=== PATIENT | male | born 1965 | race Caucasian/White ===

== ENCOUNTER 2022-09-28 12:39 | Inpatient (IN) ==
[2022-09-28] MEDS ORDERED: SODIUM CHLORIDE 0.9% 500 ML IV ONE (13:13)
--- NOTE | 2022-09-28 13:20 | Emergency Department Note ---
Impression & Plan Recurrent syncope, CAD (coronary artery disease), Orthostatic hypotension, Cardiomyopathy ED Provider Note NAME: FIDELIA STAPLES AGE: 57 SEX: M ARRIVES VIA: Walk-In INFORMANT: Patient ED PROVIDER(S): Sylvester Galvez MD CHIEF COMPLAINT: Near syncope, hypotension, referred. PLAN: Disposition: Admit MEDICAL DECISION MAKING: The patient is a pleasant 57-year-old gentleman with a past medical history of CAD status post CABG in 2020 in [place] who presents to the emergency department accompanied by his referred from [place] health [place] where he was there for a routine evaluation and had orthostatic vital signs performed which she reports is typical procedure and he became orthostatic with blood pressure down to the 70s systolic. The patient reports that he has been having orthostatic symptoms when standing ever since his bypass. He reports almost every day he will have near syncope or falls related to this. He denies hitting his head or losing consciousness per se. He notes he has been having mild cough and congestion over the past several days and has had generalized body aches. He reports he has not needed to take Lasix for some time. The patient reports he removed from [place] in June and his [facility] performed an [facility] echo to assess his heart function which demonstrated an EF of 30-35%. He reports this seems consistent with what it was when he left [place] and before his bypass he remembers his EF was 20-25%. He understands that a stress test was performed subsequently due to this and demonstrated an abnormality for which she has a scheduled catheterization next Tuesday. Patient reports that ever since his bypass he additionally frequently has chest pressure and shortness of breath with minimal exertion that occurs daily. He does not take any medications for this specifically. Patient denies any chest pain at this time. Review of the patient's nuclear medicine Lexiscan myocardial perfusion scan from 08/31/2022 demonstrates: SUMMARY: 1. Lexiscan myocardial perfusion suggests a moderate sized area of mild to moderate anteroapical ischemia. 2. Mildly dilated left ventricle with mild global hypokinesis most marked in the anteroapex. Calculated ejection fraction 40%. 3. Baseline ECG abnormal, no additional Lexiscan induced ECG changes. 4. No anginal symptoms. 5. Sporadic PVCs without couplets or runs. On arrival the patient is in no acute distress, afebrile with normal vital signs. He appears clinically dry. He has no focal neurologic deficits. EKG without overt acute ischemia. Chest x-ray negative for acute cardiopulmonary process. WBC, H/H and platelets within normal limits. Chemistry without metabolic acidosis. Electrolytes and LFTs without significant abnormality. High- sensitivity troponin 7.9, within normal limits. BMP within normal limits. Lipase not elevated. TSH within normal limits. UA without evidence of infection with epithelial cells present. 1+ ketones are noted consistent with the patient's clinically dry appearance. COVID-19, influenza and RSV PCR were negative. Given the patient's report of recurrent syncope and ongoing chest pain and shortness of breath with minimal exertion in the setting of his recent abnormal nuclear stress test he does agree with plan for admission for further management and possible earlier heart cath. Case was discussed with Dr. Mock, [facility] hospitalist, who will evaluate the patient for admission. Further management per admitting team. Triage Nursing notes reviewed and agree them. Prior/outside medical records reviewed Vital Signs: reviewed Differential diagnosis: Vasovagal event, dehydration, infection, hypoglycemia, electrolyte abnormalities, cardiac sources, intracerebral event, pulmonary embolism, seizure, toxicologic, neurologic, as well as other pathologies. ER treatment provided: See below. Diagnostics interpreted by me: ECG: Sinus bradycardia with PACs, 59 bpm, no overt ST elevation or depression, QTc 431, QRS 102 Cardiac Monitoring: An order for continuous cardiac monitoring was placed and demonstrated Sinus bradycardia with PACs, 59 bpm, Laboratory studies: See below Imaging studies: See below Consultation(s): Case was discussed with Dr. Mock [facility] hospitalist, who will evaluate the patient for admission. HPI: The patient is a pleasant 57-year-old gentleman with a past medical history of CAD status post CABG in 2020 in [place] who presents to the emergency department accompanied by his referred from [place] health provider where he was there for a routine evaluation and had orthostatic vital signs performed which she reports is typical procedure and he became orthostatic with blood pressure down to the 70s systolic. The patient reports that he has been having orthostatic symptoms when standing ever since his bypass. He reports almost every day he will have near syncope or falls related to this. He denies hitting his head or losing consciousness per se. He notes he has been having mild cough and congestion over the past several days and has had generalized body aches. He reports he has not needed to take Lasix for some time. The patient reports he removed from [place] in June and his [facility] performed an outpatient echo to assess his heart function which demonstrated an EF of 30-35%. He reports this seems consistent with what it was when he left [place] and before his bypass he remembers his EF was 20-25%. He understands that a stress test was performed subsequently due to this and demonstrated an abnormality for which she has a scheduled catheterization next Tuesday. Patient reports that ever since his bypass he additionally frequently has chest pressure and shortness of breath with minimal exertion that occurs daily. He does not take any medications for this specifically. Patient denies any chest pain at this time. ROS: See above HPI for pertinent positives & negatives. A total of 10 systems reviewed and were otherwise negative. VITALS:See Below PHYSICAL EXAMINATION: GENERAL: Awake, alert, well-appearing, in no distress HENT: Normocephalic, atraumatic. Oropharynx with dry mucous membranes and otherwise unremarkable. EYES: Normal conjunctiva. Sclera non-icteric. NECK: Supple. No nuchal rigidity. FROM. No JVD. RESPIRATORY: Clear to auscultation. CARDIAC: Regular rate, normal rhythm. Extremities warm and well perfused. Pulses equal. ABDOMEN: Soft, non-distended. No tenderness to palpation. No rebound or guarding. No masses. RECTAL: Deferred. MUSCULOSKELETAL: Chest examination reveals no tenderness. The back is symmetrical on inspection without obvious abnormality. There is no CVA tenderness to palpation. No joint edema. LOWER EXTREMITIES: Calves are equal size bilaterally and non-tender. No edema. No discoloration. NEURO: Normal sensorium. No sensory or motor deficits noted. SKIN: No rash or jaundice noted. Sylvester Galvez MD Past Med/Surg History Medical History CLAYTON (dyspnea on exertion) Essential (primary) hypertension GERD (gastroesophageal reflux disease) Hyperlipidemia NAEEM (obstructive sleep apnea) Surgical History History of inguinal herniorrhaphy (1984) S/P CABG (coronary artery bypass graft) (2020) Family History Grandfather Coronary heart disease Social History Smoking Status: Former smoker Feels Safe at Home: Yes Allergies Allergies Allergy/AdvReac Type Severity Reaction Status Date / Time lisinopril Allergy Verified 09/16/22 10:00 Penicillins Allergy Verified 09/16/22 10:00 Home Meds Home Medications Medication Instructions Recorded Confirmed aspirin 81 mg tablet,delayed 81 mg PO DAILY 09/16/22 09/28/22 release atorvastatin 80 mg tablet 80 mg PO DAILY 09/16/22 09/28/22 baclofen 10 mg tablet 10 mg PO TID PRN spasms 09/16/22 09/28/22 duloxetine 30 mg capsule,delayed 30 mg PO DAILY 09/16/22 09/28/22 release empagliflozin 25 mg tablet 25 mg PO DAILY 09/16/22 09/28/22 famotidine 20 mg tablet 20 mg PO DAILY 09/16/22 09/28/22 fluoxetine 20 mg capsule 40 mg PO DAILY 09/16/22 09/28/22 furosemide 20 mg tablet 20 mg PO DAILY PRN weight gain 09/16/22 09/28/22 meclizine 25 mg chewable tablet 12.5 mg PO Q8H PRN dizziness 09/16/22 09/28/22 (Dramamine (meclizine)) multivitamin 1 tab PO DAILY 09/16/22 09/28/22 trazodone 100 mg tablet 150 mg PO HS 09/16/22 09/28/22 triamcinolone acetonide 55 mcg 2 spray intranasal DAILY 09/16/22 09/28/22 nasal spray aerosol vitamin B complex and vitamin C 1 cap PO DAILY 09/16/22 09/28/22 no.20-folic acid 1 mg capsule carvedilol 25 mg tablet 25 mg PO BID 09/28/22 09/28/22 losartan 25 mg tablet 12.5 mg PO DAILY 09/28/22 09/28/22 spironolactone 25 mg PO DAILY 09/28/22 09/28/22 Results & Data (ED) Vital Signs Vital Signs - 24 hr 09/28/22 12:45 09/28/22 13:11 09/28/22 13:11 Temperature 36.4 C L Temperature Source Temporal Artery Scan Pulse Rate 73 62 Pulse Rate [Left Finger] 68 Respiratory Rate 18 16 16 Respiratory Effort / Characteristics Non-Labored Respiratory Depth Normal Respiratory Pattern Regular Blood Pressure 111/74 Blood Pressure [Right Arm] 122/79 Blood Pressure Mean 86 Blood Pressure Mean [Right Arm] 93 Blood Pressure Position Sitting Pulse Oximetry 97 98 99 Oxygen Delivery Method Room Air Room Air Room Air Sepsis Recent Fever Within 48 Hours No Sepsis New/Unexplained Change in Mental Status No Sepsis Action Taken by Nursing No Action Required 09/28/22 15:26 Temperature Temperature Source Pulse Rate Pulse Rate [Left Finger] 55 L Respiratory Rate 18 Respiratory Effort / Characteristics Non-Labored Spontaneous Respiratory Depth Normal Respiratory Pattern Blood Pressure Blood Pressure [Right Arm] 109/74 Blood Pressure Mean Blood Pressure Mean [Right Arm] 85 Blood Pressure Position Pulse Oximetry 99 Oxygen Delivery Method Room Air Sepsis Recent Fever Within 48 Hours Sepsis New/Unexplained Change in Mental Status Sepsis Action Taken by Nursing Laboratory Data 09/28/22 13:20 09/28/22 13:20 Lab Results 09/28/22 09/28/22 09/28/22 Range/Units 13:20 13:20 13:20 WBC 6.64 (4.8-10.8) K/ul RBC 4.79 (4.70-6.10) M/uL Hgb 15.7 (14.0-18.0) g/dl Hct 45.1 (42.0-52.0) % MCV 94.2 (80.0-100.0) fL MCH 32.8 (25.0-34.0) pg MCHC 34.8 (32.0-36.0) g/dL RDW Std Deviation 43.7 (36.4-46.3) fL RDW Coeff of Alvaro 12.5 (11.5-14.5) % Plt Count 199 (130-400) K/uL MPV 10.2 (9.4-12.4) fL Immature Gran % (Auto) 0.6 % Neut % (Auto) 65.6 % Lymph % (Auto) 20.3 % Billings % (Auto) 11.7 % Eos % (Auto) 1.5 % Baso % (Auto) 0.3 % Neut # (Auto) 4.35 (1.40-6.50) K/uL Lymph # (Auto) 1.35 (1.2-3.4) K/uL Bill[place] # (Auto) 0.78 H (0.11-0.59) K/uL Eos # (Auto) 0.10 (0-0.50) K/uL Baso # (Auto) 0.02 (0-0.2) K/uL Immature Gran # (Auto) 0.04 (0.01-0.20) K/uL Sodium 138 (136-145) mmol/L Potassium 4.3 (3.5-5.1) mmol/L Chloride 103 (98-107) mmol/L Carbon Dioxide 31 (21-32) mmol/L Anion Gap 4 (3-11) BUN 18 (6-23) mg/dl Creatinine 0.93 (0.6-1.4) mg/dl Est Cr Clr Drug Dosing 93.4 ml/min Est GFR ( Amer) 103.8 ml/min Est GFR (Non-Af Amer) 89.5 ml/min BUN/Creatinine Ratio 19.4 (10-20) Glucose 93 (70-99(Fasting)) mg/dl Calcium 9.4 (8.5-10.1) mg/dl Phosphorus 3.0 (2.5-4.9) mg/dl Magnesium 2.3 (1.7-2.4) mg/dl Total Bilirubin 0.6 (0.2-1.0) mg/dl AST 10 L (13-39) U/L ALT 6 L (7-52) U/L Alkaline Phosphatase 84 (34-104) U/L Troponin I High Sens 7.9 (0-20) pg/ml B-Natriuretic Peptide (0-100) pg/ml Total Protein 7.4 (6.0-8.3) gm/dl Albumin 4.1 (3.4-5.0) gm/dl Globulin 3.3 (2.5-4.0) gm/dl Albumin/Globulin Ratio 1.2 (0.9-2) Lipase 26 (11-82) U/L TSH 2.179 (0.300-4.500) uIu/ml SARS-CoV-2 (PCR) (Negative) Influenza Type A (PCR) (Neg) Influenza Type B (PCR) (Neg) RSV (RT-PCR) (Neg) 09/28/22 09/28/22 Range/Units 13:20 14:45 WBC (4.8-10.8) K/ul RBC (4.70-6.10) M/uL Hgb (14.0-18.0) g/dl Hct (42.0-52.0) % MCV (80.0-100.0) fL MCH (25.0-34.0) pg MCHC (32.0-36.0) g/dL RDW Std Deviation (36.4-46.3) fL RDW Coeff of Alvaro (11.5-14.5) % Plt Count (130-400) K/uL MPV (9.4-12.4) fL Immature Gran % (Auto) % Neut % (Auto) % Lymph % (Auto) % Bill[place] % (Auto) % Eos % (Auto) % Baso % (Auto) % Neut # (Auto) (1.40-6.50) K/uL Lymph # (Auto) (1.2-3.4) K/uL Billings # (Auto) (0.11-0.59) K/uL Eos # (Auto) (0-0.50) K/uL Baso # (Auto) (0-0.2) K/uL Immature Gran # (Auto) (0.01-0.20) K/uL Sodium (136-145) mmol/L Potassium (3.5-5.1) mmol/L Chloride (98-107) mmol/L Carbon Dioxide (21-32) mmol/L Anion Gap (3-11) BUN (6-23) mg/dl Creatinine (0.6-1.4) mg/dl Est Cr Clr Drug Dosing ml/min Est GFR ( Amer) ml/min Est GFR (Non-Af Amer) ml/min BUN/Creatinine Ratio (10-20) Glucose (70-99(Fasting)) mg/dl Calcium (8.5-10.1) mg/dl Phosphorus (2.5-4.9) mg/dl Magnesium (1.7-2.4) mg/dl Total Bilirubin (0.2-1.0) mg/dl AST (13-39) U/L ALT (7-52) U/L Alkaline Phosphatase (34-104) U/L Troponin I High Sens (0-20) pg/ml B-Natriuretic Peptide 66 (0-100) pg/ml Total Protein (6.0-8.3) gm/dl Albumin (3.4-5.0) gm/dl Globulin (2.5-4.0) gm/dl Albumin/Globulin Ratio (0.9-2) Lipase (11-82) U/L TSH (0.300-4.500) uIu/ml SARS-CoV-2 (PCR) NEGATIVE (Negative) Influenza Type A (PCR) Negative (Neg) Influenza Type B (PCR) Negative (Neg) RSV (RT-PCR) Negative (Neg) Administered Medications Discontinued Medications Sodium Chloride (Nss) 500 mls @ 500 mls/hr IV .Q1H ONE Stop: 09/28/22 14:12 Last Admin: 09/28/22 15:22 Dose: 500 mls/hr Documented By: [facility] Imaging Data Radiologist's Impression: Chest X-Ray 09/28/22 12:51 XR chest 1V portable HISTORY: 57 years-old Male Chest pain, nonspecific acute chest pain COMPARISON: None TECHNIQUE: AP view the chest FINDINGS: Cardiomediastinal and hilar silhouettes are within normal limits. Prior median sternotomy. No pneumothorax, pleural effusion, airspace consolidation or overt pulmonary edema. Degenerative changes of the shoulders and spine. IMPRESSION: No acute process. ACT 112: Negative or not required by law. The above report was generated using voice recognition software. It may contain grammatical, syntax or spelling errors. Electronically signed by: Neri Tavares M.D. 09/28/2022 1:31 PM Discharge Plan Visit Data Chief Complaint: Hypotension Stated Complaint: LOW BP ED Provider: Sylvester Galvez Discharge Problem: Recurrent syncope, CAD (coronary artery disease), Orthostatic hypotension, Cardiomyopathy Patient Disposition: Admitted As Inpatient Discharge Instructions Interventions: ED Discharge Assessment Last Done: 09/28/22 17:36
--- NOTE | 2022-09-28 13:32 | XRay Report ---
XR chest 1V portable HISTORY: 57 years-old Male Chest pain, nonspecific acute chest pain COMPARISON: None TECHNIQUE: AP view the chest FINDINGS: Cardiomediastinal and hilar silhouettes are within normal limits. Prior median sternotomy. No pneumot horax, pleural effusion, airspace consolidation or overt pulmonary edema. Degenerative changes of the shoulders and spine. IMPRESSION: No acute process. ACT 112: Negative or not required by law. The above report was generated using voice recognition software. It may contain grammatical, syntax o r spelling errors. Electronically signed by: Neri Tavares M.D. 09/28/2022 1:31 PM
[2022-09-28 13:38] LABS: Basophils # (auto) 0.02 K/uL (0-0.2); Basophils % (auto) 0.3 %; Eosinophils % (auto) 1.5 %; Hematocrit (blood only) 45.1 % (42.0-52.0); Hemoglobin 15.7 g/dl (14.0-18.0); Immature Granulocytes # (auto) 0.04 K/uL (0.01-0.20); Immature Granulocytes % (auto) 0.6 %; Lymphocytes # (auto) 1.35 K/uL (1.2-3.4); Lymphocytes % (auto) 20.3 %; Mean Corpuscular Hemoglobin 32.8 pg (25.0-34.0); Mean Corpuscular Hgb Conc 34.8 g/dL (32.0-36.0); Mean Corpuscular Volume 94.2 fL (80.0-100.0); Mean Platelet Volume 10.2 fL (9.4-12.4); Monocytes # (auto) 0.78 K/uL (0.11-0.59); Monocytes % (auto) 11.7 %; Neutrophils # (auto) 4.35 K/uL (1.40-6.50); Neutrophils % (auto) 65.6 %; Platelet Count 199 K/uL (130-400); RDW Coefficient of Variation 12.5 % (11.5-14.5); RDW Standard Deviation 43.7 fL (36.4-46.3); Red Blood Count 4.79 M/uL (4.70-6.10); White Blood Count 6.64 K/ul (4.8-10.8)
[2022-09-28 13:58] LABS: Albumin Globulin Ratio 1.2 (0.9-2); Albumin Level 4.1 gm/dl (3.4-5.0); BUN Creatinine Ratio 19.4 (10-20); Bilirubin,Total 0.6 mg/dl (0.2-1.0); Calcium 9.4 mg/dl (8.5-10.1); Creatinine Clr Calc Pharmacy 93.4 ml/min; Est GFR (African American) 103.8 ml/min; Est GFR (Non-African American) 89.5 ml/min; Globulin 3.3 gm/dl (2.5-4.0); Magnesium 2.3 mg/dl (1.7-2.4); Potassium 4.3 mmol/L (3.5-5.1); Total Protein 7.4 gm/dl (6.0-8.3)
[2022-09-28 14:01] LABS: Troponin I High Sensitivity 7.9 pg/ml (0-20)
--- NOTE | 2022-09-28 14:46 | History & Physical Report ---
Date of Service September 28, 2022 Assessment & Plan (1) Orthostatic hypotension: Plan: -Admit to the PCU -The patient is currently afebrile, hemodynamically stable, and stable on RA -Patient has an extensive cardiac history including CAD S/P CABG in 2020, noted to have ischemic cardiomyopathy and has been experiencing significant orthostatic hypotension and CLAYTON/Angina -Patient underwent a stress echo last month and was noted to have ischemic findings, he was scheduled to have a Heart Cath with Dr. Ivory on 10/04/22 -Patient was sent to the ED today from the [facility] for recurrent orthostatic hypotension -After discussions with the Patient and the Cardiology team, it was agreed that the patient should be admitted and will be placed as a priority appointment with the pie bakery laborer likely tomorrow due to his high risk situation and progression of symptoms -Patient is currently asymptomatic at rest, 2 hour repeat troponin is also WNL -Monitor on tele and pulse oximetry and continue to monitor trop q6h -Will continue his carvedilol and Jardiance but will hold his lasix, spironolactone and losartan to prevent recurrent episodes of orthostasis -Cardiology is consulted -AM CBC, CMP, PT/INR (2) CAD (coronary artery disease): Plan: -Continue aspirin (3) Essential (primary) hypertension: Plan: -Stable -See orthostatic hypotension (4) Hyperlipidemia: Plan: -Contiue statin (5) GERD (gastroesophageal reflux disease): Plan: -Continue famotidine (6) NAEEM (obstructive sleep apnea): Plan: -Patient states that his CPAP has recently caused exacerbations with his anginal symptoms, will hold for now Plan The patient was discussed with Dr. Mock at the time of the admission History of Present Illness Chief Complaint: Near syncope Primary Care Provider: Satya Hutchinson PA-C Harpreet is a 57 year old male with a PMH significant for CAD status post CABG in 2020 in [place], HFrEF (LVEF of 30-35%, grade I diastolic dysfunction, generalized hypokinesis of the left ventricle as of 07/28/23), anxiety/depression, and hyperlipidemia who presented to [facility] syncope. In the ED the patient was found to be afebrile, hemodynamically stable, and stable on RA. Labs were remarkable for a CBC WNL, cr of 0.93 (no previous baseline), stable electrolytes, initial high sensitivity trop of 7.9, TSH WNL, chest xray was read as "No acute process.". At the time of the exam the patient was resting comfortably in bed in no acute distress with his sitting bedside. He states that since his CABG procedure in 2020 he has had issues with orthostatic hypotension and has been symptomatic (CLAYTON, angina) with minimal exertion. When asked, he states that his symptoms have been progressing in the recent past including CLAYTON and chest pain. He went [facility]iat[facility] today where they performed orthostatic vitals, he was significantly orthostatic with systolic BP in the 70's, he was noted to be significantly dizzy/lightheaded. He recently moved to [place] from [place] and underwent a stress echo on 08/31/[address] Cortez which showed "a moderate sized area of mild to moderate anteroapical ischemia". He was scheduled for a heart cath with Dr. Ivory on 10/04/22 but was sent here for further evaluation. He denies recent fevers, chills, changes in vision, hearing, taste, and smell, current chest pain, SOB at rest, abdominal pain, nausea, vomiting, diarrhea, dysuria, hematuria and recent falls. We discussed code status, the patient was adamant that he would NOT want CPR or defibrillation in the event of cardiac arrest. In the even of respiratory failure the patient would want a trial of intubation. If he could not make decisions himself he would want his to make decisions for him. Please refer to Dr. Mock's attestation for any chnages to the treatment. Allergies Allergy/AdvReac Type Severity Reaction Status Date / Time lisinopril Allergy Verified 09/16/22 10:00 Penicillins Allergy Verified 09/16/22 10:00 Home Medications Medication Instructions Recorded Confirmed Type aspirin 81 mg tablet,delayed 81 mg PO DAILY 09/16/22 09/28/22 History release atorvastatin 80 mg tablet 80 mg PO DAILY 09/16/22 09/28/22 History baclofen 10 mg tablet 10 mg PO TID PRN spasms 09/16/22 09/28/22 History duloxetine 30 mg capsule,delayed 30 mg PO DAILY 09/16/22 09/28/22 History release empagliflozin 25 mg tablet 25 mg PO DAILY 09/16/22 09/28/22 History famotidine 20 mg tablet 20 mg PO DAILY 09/16/22 09/28/22 History fluoxetine 20 mg capsule 40 mg PO DAILY 09/16/22 09/28/22 History furosemide 20 mg tablet 20 mg PO DAILY PRN weight gain 09/16/22 09/28/22 History meclizine 25 mg chewable tablet 12.5 mg PO Q8H PRN dizziness 09/16/22 09/28/22 History (Dramamine (meclizine)) multivitamin 1 tab PO DAILY 09/16/22 09/28/22 History trazodone 100 mg tablet 150 mg PO HS 09/16/22 09/28/22 History triamcinolone acetonide 55 mcg 2 spray intranasal DAILY 09/16/22 09/28/22 History nasal spray aerosol vitamin B complex and vitamin C 1 cap PO DAILY 09/16/22 09/28/22 History no.20-folic acid 1 mg capsule carvedilol 25 mg tablet 25 mg PO BID 09/28/22 09/28/22 History losartan 25 mg tablet 12.5 mg PO DAILY 09/28/22 09/28/22 History spironolactone 25 mg PO DAILY 09/28/22 09/28/22 History Past Med/Surg History Surgical History History of inguinal herniorrhaphy (1984) S/P CABG (coronary artery bypass graft) (2020) Family History Grandfather Coronary heart disease Social History Smoking Status: Former smoker Feels Safe at Home: Yes Review of Systems Review of Systems: Denies current fever, chills, headache, changes in vision, hearing, taste, and smell, chest pain, SOB, cough, abdominal pain, nausea, vomiting, diarrhea, hematemesis, melena, dysuria, hematuria, and recent falls. All systems have been reviewed and are otherwise negative. Physical Exam Physical Exam: Physical Exam: General: In no acute distress, stated age, well-nourished, good hygiene HEENT: Normocephalic, atraumatic, no scleral icterus, pupils around round, symmetrical, and reactive to light, moist mucus membranes, trachea midline, no thyromegaly Chest/Pulm: No respiratory distress, symmetrical chest expansion, clear breath sounds throughout Cardiac: RRR, systolic murmur noted, large sternal scar from previous CABG appears well-healed Abdomen: Negative for ascites and bruising, normoactive bowel sounds, soft, non-tender to palpation throughout Musculoskeletal: Symmetrical and without signs of acute trauma, upper and lower extremities with full ROM, no atrophy, spasticity, or flaccidity Extremities: Radial, dorsalis pedis, and posterior tibial pulses are intact and symmetrical, no edema noted in the BL LE's Skin: Warm, dry, no rashes , lesions, or scars noted Neuro: Alert and oriented to person, place, month, year, and president, no focal defects, CN II-XII tested and intact, no tremors noted Psych: No acute distress, calm and cooperative during the exam Results & Data Results & Data ([facility]) Vital Signs (Past 12 Hours) Vital Signs Temp Pulse Pulse Resp BP BP Pulse Ox 09/28/22 13:11 62 16 99 09/28/22 13:11 68 16 122/79 98 09/28/22 12:45 36.4 C L 73 18 111/74 97 O2 Del Method 09/28/22 13:11 Room Air 09/28/22 13:11 Room Air 09/28/22 12:45 Room Air Laboratory Results Abnormal lab results 09/28/22 09/28/22 09/28/22 Range/Units 13:20 13:20 16:25 [place] # (Auto) 0.78 H (0.11-0.59) K/uL AST 10 L (13-39) U/L ALT 6 L (7-52) U/L Ur Specific [place] 1.042 H (1.000-1.030) Urine Glucose (UA) 3+ H (Negative) Urine Ketones 1+ H (Negative) Urine Blood 2+ H (Negative) Urine RBC (Auto) 10-30 H (0-4) /hpf U Epithel Cells (Auto) 5-10 H (0-5) /lpf Diagnostic Findings Chest X-Ray 09/28/22 12:51 XR chest 1V portable HISTORY: 57 years-old Male Chest pain, nonspecific acute chest pain COMPARISON: None TECHNIQUE: AP view the chest FINDINGS: Cardiomediastinal and hilar silhouettes are within normal limits. Prior median sternotomy. No pneumothorax, pleural effusion, airspace consolidation or overt pulmonary edema. Degenerative changes of the shoulders and spine. IMPRESSION: No acute process. ACT 112: Negative or not required by law. The above report was generated using voice recognition software. It may contain grammatical, syntax or spelling errors. Electronically signed by: Neri Tavares M.D. 09/28/2022 1:31 PM ECG Additional Comments: Sinus bradycardia with Premature atrial complexes Nonspecific ST abnormality Anterolateral leads Abnormal ECG No previous ECGs available Confirmed by Dillon Cortez ([id number]) on 09/28/2022 4:05:52 PM Code Status & VTE Plan Code Status Conditional code; does NOT want CPR or defibrillation in the case of cardiac arrest. Would want a trial of intubation in the event of respiratory failure VTE Prophylaxis Plan VTE Prophylaxis will be ordered: Yes PG Care Time/CCT Total # of Minutes Spent Total Time Spent with Patient: Total time spent is greater than 50% in coordination of care (as documented) at patient's floor/unit and/or counseling patient: Coding [place] [address] INT INP/OBS CARE 3/75MIN Patient Type Established History Comprehensive Exam Comprehensive Medical Decision Making High Complexity Diagnoses Orthostatic hypotension I95.1 CAD (coronary artery disease) I25.10 Essential (primary) hypertension I10 Hyperlipidemia E78.5 GERD (gastroesophageal reflux disease) K21.9 NAEEM (obstructive sleep apnea) G47.33
[2022-09-28 15:41] LABS: Influenza A virus by PCR Negative (Neg); Influenza B virus by PCR Negative (Neg); RSV by PCR Negative (Neg); SARS CoV2 RNA(COVID-19) Ceph NEGATIVE (Negative)
--- NOTE | 2022-09-28 16:06 | Electrocardiogram Report ---
Test Reason : Blood Pressure : / mmHG Vent. Rate : 059 BPM Atrial Rate : 059 BPM P-R Int : 184 ms QRS Dur : 102 ms QT Int : 436 ms P-R-T Axes : 066 068 081 degrees QTc Int : 431 ms Sinus bradycardia with Premature atrial complexes Nonspecific ST abnormality Anterolateral leads Abnormal ECG No previous ECGs available Confirmed by Dillon Cortez ([id number]) on 09/28/2022 4:05:52 PM Referred By: Confirmed By:Dillon Cortez
[2022-09-28 16:41] LABS: Appearance Urine Clear (Clear); Bacteria Urine Automated Negative (Negative); Bilirubin Urine Negative (Negative); Blood Urine 2+ (Negative); Cast Urine Automated 0 /lpf (0-5); Color Urine Yellow; Glucose Urine UA 3+ (Negative); Ketones Urine 1+ (Negative); Leukocyte Esterase Urine Negative (Negative); Nitrite Urine Negative (Negative); Protein Urine Negative (Negative); Specific Gravity Urine 1.042 (1.000-1.030); Urobilinogen Urine Negative (Negative); pH Urine 6.5 (4.5-7.5)
--- NOTE | 2022-09-28 17:14 | Cardiology Consultation ---
Date of Consultation September 28, 2022 Assessment & Plan (1) CLAYTON (dyspnea on exertion): (2) Orthostatic hypotension: (3) CAD (coronary artery disease): (4) Ischemic cardiomyopathy: (5) S/P CABG (coronary artery bypass graft): (6) Essential (primary) hypertension: Plan 57-year-old man status post CABG 2020 who has had chronic orthostatic lightheadedness and dyspnea exertion since that time, worsening symptoms recently and August 2022 myocardial perfusion scan showed a moderate area of anteroapical ischemia. Patient had been planned for outpatient catheterization, due to concerns over orthostasis at the CT today he was sent to our ER, it was felt most prudent to admit and expedite his catheterization to define the degree of remaining occlusive coronary disease in order to help guide the appropriate level of vasoactive medications. Notes from [facility] refer to vein grafts to the posterolateral branch and an obtuse marginal branch, but unfortunately the remaining graft location was indecipherable on the transferred record (possibly WALTERS graft). His initial troponins were negative, his ECG is stable, and he is currently asymptomatic. Agree with proceeding to cardiac catheterization, based on results his vasoactive regimen can be adjusted to balance the need for medical management of any remaining occlusive coronary artery disease against his apparent tendency to orthostatic hypotension. Further recommendations postcatheterization. Note: Although the patient apparently stated earlier that he did not want CPR or defibrillation, I spoke with him as well and I believe he meant he would not want a defibrillator. He told me that he would not want CPR but would agree with defibrillation if he were to have a transient dysrhythmia. History of Present Illness Reason for Consultation: scheduled heart cath on 09/03, more symptomatic History of Present Illness 57-year-old man with CAD (status post CABG x 3 [place] 2020), ischemic cardiomyopathy (EF 30-35%), chronic orthostatic hypotension since CABG, hypertension, dyslipidemia, diabetes mellitus, COPD, and obstructive sleep apnea who is followed at the [facility], had a recent abnormal Lexiscan Cardiolite (moderate anteroapical ischemia), and is now admitted to expedite a planned cardiac catheterization due to increasing symptoms in recent weeks. He has had orthostatic lightheadedness ever since his CABG, this is somewhat worse recently despite there being no change in his vasoactive regimen (carvedilol 25 mg twice daily, losartan 12.5 mg daily, spironolactone 25 mg daily, furosemide 20 mg daily as needed). He has also noted dyspnea on exertion after less than 1 flight of stairs, this has been present since before or at the time of his CABG and his exercise tolerance seems to be worsening. He denies to me any actual anginal type symptoms during exertion, only breathlessness. He does note left-sided chest discomfort when lying on his left side and also has some localized anterior axillary line lower right rib pain at times. At the time of my evaluation, he was asymptomatic at rest. Allergies Allergy/AdvReac Type Severity Reaction Status Date / Time lisinopril Allergy Verified 09/16/22 10:00 Penicillins Allergy Verified 09/16/22 10:00 Home Medications Medication Instructions Recorded Confirmed Type aspirin 81 mg tablet,delayed 81 mg PO DAILY 09/16/22 09/28/22 History release atorvastatin 80 mg tablet 80 mg PO DAILY 09/16/22 09/28/22 History baclofen 10 mg tablet 10 mg PO TID PRN spasms 09/16/22 09/28/22 History duloxetine 30 mg capsule,delayed 30 mg PO DAILY 09/16/22 09/28/22 History release empagliflozin 25 mg tablet 25 mg PO DAILY 09/16/22 09/28/22 History famotidine 20 mg tablet 20 mg PO DAILY 09/16/22 09/28/22 History fluoxetine 20 mg capsule 40 mg PO DAILY 09/16/22 09/28/22 History furosemide 20 mg tablet 20 mg PO DAILY PRN weight gain 09/16/22 09/28/22 History meclizine 25 mg chewable tablet 12.5 mg PO Q8H PRN dizziness 09/16/22 09/28/22 History (Dramamine (meclizine)) multivitamin 1 tab PO DAILY 09/16/22 09/28/22 History trazodone 100 mg tablet 150 mg PO HS 09/16/22 09/28/22 History triamcinolone acetonide 55 mcg 2 spray intranasal DAILY 09/16/22 09/28/22 History nasal spray aerosol vitamin B complex and vitamin C 1 cap PO DAILY 09/16/22 09/28/22 History no.20-folic acid 1 mg capsule carvedilol 25 mg tablet 25 mg PO BID 09/28/22 09/28/22 History losartan 25 mg tablet 12.5 mg PO DAILY 09/28/22 09/28/22 History spironolactone 25 mg PO DAILY 09/28/22 09/28/22 History Patient History Surgical History History of inguinal herniorrhaphy (1984) S/P CABG (coronary artery bypass graft) (2020) Family History Grandfather Coronary heart disease Social History Smoking Status: Former smoker Feels Safe at Home: Yes Physical Exam Physical Exam: Normal habitus adult white male in no distress. Afebrile. BP 109/74 mmHg (orthostatics not tested, but apparently [facility]) Pulse 55 bpm and regular. Skin: no ecchymoses or generalized lesions. HEENT: unremarkable. Neck: no JVD or carotid bruits. Lungs: clear bilaterally. No wheezing or rhonchi. Cardiac: regular rhythm, normal S1 and S2 no murmur or gallop. Abdomen: benign. Extremities: no edema, pulses intact. Neurologic: normal affect and conversation, nonfocal. Results & Data ([facility]) Vital Signs (Past 12 Hours) Vital Signs Temp Pulse Pulse Resp BP BP Pulse Ox 09/28/22 15:26 55 L 18 109/74 99 09/28/22 13:11 62 16 99 09/28/22 13:11 68 16 122/79 98 09/28/22 12:45 97.5 F L 73 18 111/74 97 O2 Del Method 09/28/22 15:26 Room Air 09/28/22 13:11 Room Air 09/28/22 13:11 Room Air 09/28/22 12:45 Room Air Laboratory Results High-sensitivity troponin 7.9 and 5.7. BNP 66. Hemoglobin 15.7 with normal white count. Normal electrolytes, BUN 18, creatinine 0.93. Diagnostic Findings ECG today showed sinus bradycardia 59 bpm with nonspecific anterolateral ST depressions. Compared with a 07/28/2022 ECG from the [facility], the ST depressions today were actually less prominent than on the prior tracing. Lexiscan myocardial perfusion study from 08/31/2022 showed moderate-sized area of mild to moderate anteroapical ischemia and a calculated EF of 40%. Echocardiogram July 2022 showed EF 30 to 35% with generalized global hypokinesis, diastolic dysfunction, mild MR/moderate TR. PG Care Time/CCT Total # of Minutes Spent Total Time Spent with Patient: Total time spent is greater than 50% in coordination of care (as documented) at patient's floor/unit and/or counseling patient: Coding Level of Care Code INP/OBS CONSULT LVL 4, 60 MIN Diagnoses CLAYTON (dyspnea on exertion) R06.09 Orthostatic hypotension I95.1 CAD (coronary artery disease) I25.10 Ischemic cardiomyopathy I25.5 S/P CABG (coronary artery bypass graft) Z95.1 Essential (primary) hypertension I10
[2022-09-28] MEDS ORDERED: BACLOFEN 10 MG TAB PO PRN (17:36)
[2022-09-28] MEDS: ACETAMINOPHEN 500 MG TAB PO SCH (21:24)
[2022-09-28] MEDS: traZODone HCL 50 MG TAB PO SCH (21:25)
[2022-09-28] MEDS: carvediloL 25 MG TAB PO SCH (21:25)
[2022-09-29 06:26] LABS: Albumin Globulin Ratio 1.3 (0.9-2); Albumin Level 3.7 gm/dl (3.4-5.0); BUN Creatinine Ratio 23.3 (10-20); Bilirubin,Total 0.3 mg/dl (0.2-1.0); Calcium 8.8 mg/dl (8.5-10.1); Creatinine Clr Calc Pharmacy 102.8 ml/min; Est GFR (Non-African American) 94.9 ml/min; Globulin 2.8 gm/dl (2.5-4.0); Magnesium 2.1 mg/dl (1.7-2.4); Total Protein 6.5 gm/dl (6.0-8.3)
[2022-09-29 06:36] LABS: Prothrombin Time 10.4 Seconds (9.0-12.0)
[2022-09-29] MEDS: carvediloL 25 MG TAB PO SCH (08:13)
[2022-09-29] MEDS: ATORVASTATIN 40 MG TAB PO SCH (08:14)
[2022-09-29] MEDS: ACETAMINOPHEN 500 MG TAB PO SCH ×2 (08:14→22:05)
[2022-09-29] MEDS: ASPIRIN 81 MG ECTAB PO SCH ×2 (08:15→17:10)
[2022-09-29] MEDS: DULoxetine HCL 30 MG CAP PO SCH (08:15)
[2022-09-29] MEDS: FLUoxetine HCL 20 MG CAP PO SCH (08:15)
[2022-09-29] MEDS: FAMOTIDINE 20 MG TAB PO SCH (08:15)
[2022-09-29] MEDS: EMPAGLIFLOZIN 25 MG TAB PO SCH (08:16)
--- NOTE | 2022-09-29 10:11 | Cardiology Progress Note ---
Date of Service September 29, 2022 Assessment & Plan (1) CLAYTON (dyspnea on exertion): (2) Orthostatic hypotension: (3) CAD (coronary artery disease): (4) Ischemic cardiomyopathy: (5) S/P CABG (coronary artery bypass graft): (6) Essential (primary) hypertension: Plan 57-year-old man status post CABG 2020 who has had chronic orthostatic lightheadedness and dyspnea exertion since that time, worsening symptoms recently and August 2022 myocardial perfusion scan showed a moderate area of anteroapical ischemia. As noted, for cardiac catheterization later today to evaluate coronary anatomy/bypass grafts. He continues to demonstrate significant orthostatic hypotension, he may well be hypoperfusing his coronaries/grafts and this could contribute to his potential angina and dyspneic symptoms. During cardiac catheterization can assess whether he has peripheral hypotension due to vascular stenosis or has true central hypotension (which is likely given his orthostatic symptoms). In the face of tahira orthostasis/hypotension would discontinue carvedilol, if he becomes tachycardic could add low-dose metoprolol. Would aim for systolic blood pressure 100-120 mmHg range, since more aggressive BP goal would likely continue to result in cerebral hypoperfusion whenever he stands up. Should remain off furosemide, spironolactone, and losartan as well. He appears euvolemic today, could utilize furosemide on a as needed basis for an y abrupt weight gain. Although carvedilol, furosemide, spironolactone, and losartan are all part of guideline based therapy for ischemic cardiomyopathy, each must be titrated to optimize hemodynamics rather than administered automatically. Further recommendations based on results of cardiac catheterization and hemodynamic response to discontinuing carvedilol. Admission and Anticipated Discharge Date Admission Date: September 28, 2022 Subjective Uneventful night, no chest discomfort. Still notes his chronic orthostatic lightheadedness whenever he stands up. Bedside BP evaluation by MD today demonstrated systolic blood pressure 90 mmHg by palpation seated, dropped to 60-70 mmHg upon standing (associated lightheadedness). Telemetry showed sinus rhythm in the 60-70 bpm range, no dysrhythmias or significant ectopy. Patient proceeding to cardiac catheterization later today. Physical Exam Physical Exam: No distress. Moderately hypertensive BP with orthostasis as noted in HPI. Pulse 68 bpm and regular. Skin: no ecchymoses or generalized lesions. HEENT: unremarkable. Neck: no JVD or carotid bruits. Lungs: Mildly decreased breath sounds but clear bilaterally. No wheezing or rhonchi. Cardiac: regular rhythm, normal S1 and S2 no murmur or gallop. Abdomen: benign. Extremities: no edema, pulses intact. Neurologic: normal affect and conversation, nonfocal. Results & Data ([facility]) Vital Signs (Past 12 Hours) Vital Signs Temp Pulse Pulse Resp BP BP Pulse Ox 09/29/22 07:51 99.0 F 75 16 101/67 94 09/29/22 03:45 97.3 F L 60 16 99/65 L 94 09/28/22 22:34 62 09/28/22 22:40 98.1 F 67 18 123/74 95 O2 Del Method 09/29/22 07:51 Room Air 09/29/22 03:45 Room Air 09/28/22 22:34 09/28/22 22:40 Room Air Laboratory Results Normal electrolytes, BUN 20, creatinine 0.86. PG Care Time/CCT Total # of Minutes Spent Total Time Spent with Patient: Total time spent is greater than 50% in coordination of care (as documented) at patient's floor/unit and/or counseling patient: Coding Level of Care Code 32694 SUB INP/OBS CARE 3/50MIN Diagnoses CLAYTON (dyspnea on exertion) R06.09 Orthostatic hypotension I95.1 CAD (coronary artery disease) I25.10 Ischemic cardiomyopathy I25.5 S/P CABG (coronary artery bypass graft) Z95.1 Essential (primary) hypertension I10
[2022-09-29] MEDS ORDERED: MIDAZOLAM HCL 1 MG/ML 2ML VIAL ONE (11:50)
[2022-09-29] MEDS ORDERED: fentaNYL citrate 100 MCG/2 ML VIAL ONE (11:51)
[2022-09-29] MEDS ORDERED: LIDOCAINE 1% LOCAL 20 ML VIAL ONE (12:03)
--- NOTE | 2022-09-29 13:09 | Pre Anesthesia Assessment ---
Date of Service September 29, 2022 Pre Sedation Assessment Vital Signs Temp Pulse Pulse Resp BP BP Pulse Ox 09/29/22 12:01 58 L 16 99/58 L 96 09/29/22 11:02 36.9 C 57 L 18 104/65 95 09/29/22 10:16 48 L 09/29/22 07:51 37.2 C 75 16 101/67 94 09/29/22 03:45 36.3 C L 60 16 99/65 L 94 09/28/22 22:34 62 09/28/22 22:40 36.7 C 67 18 123/74 95 09/28/22 20:01 36.6 C 60 18 131/78 96 09/28/22 18:25 64 16 119/73 97 09/28/22 15:26 55 L 18 109/74 99 09/28/22 13:11 62 16 99 09/28/22 13:11 68 16 122/79 98 O2 Del Method 09/29/22 12:01 Room Air 09/29/22 11:02 Room Air 09/29/22 10:16 09/29/22 07:51 Room Air 09/29/22 03:45 Room Air 09/28/22 22:34 09/28/22 22:40 Room Air 09/28/22 20:01 Room Air 09/28/22 18:25 Room Air 09/28/22 15:26 Room Air 09/28/22 13:11 Room Air 09/28/22 13:11 Room Air Cardiovascular RRR, no murmur, no edema Respiratory normal respiratory effort, lungs clear to auscultation Pre-Sedation Airway Assessment Smoking Status: Former smoker Hx Sleep Apnea: Yes Short, Thick Neck: No Thyromental Distance: > or= 3.5 Finger Breadths Oral Cavity: + WNL Mallampati Class: II ASA: ASA2 NPO Status Date of Last Intake of Fluids: 09/28/22 Time of Last Intake of Fluids: 22:00 Date of Last Intake of Solid Food: 09/28/22 Time of Last Intake of Solid Foods: 22:00 Notes The planned sedation has been discussed with the patient. Informed Consent was obtained. I have identified the patient, determined the appropriateness of sedation and have assessed the patient immediately prior to the procedure. All medicine(s) and interventions are by my order.
--- NOTE | 2022-09-29 13:11 | Post Anesthesia Assessment ---
Date of Service September 29, 2022 Post Sedation Assessment Vital Signs Temp Pulse Pulse Resp BP BP Pulse Ox 09/29/22 12:01 58 L 16 99/58 L 96 09/29/22 11:02 36.9 C 57 L 18 104/65 95 09/29/22 10:16 48 L 09/29/22 07:51 37.2 C 75 16 101/67 94 09/29/22 03:45 36.3 C L 60 16 99/65 L 94 09/28/22 22:34 62 09/28/22 22:40 36.7 C 67 18 123/74 95 09/28/22 20:01 36.6 C 60 18 131/78 96 09/28/22 18:25 64 16 119/73 97 09/28/22 15:26 55 L 18 109/74 99 09/28/22 13:11 62 16 99 09/28/22 13:11 68 16 122/79 98 O2 Del Method 09/29/22 12:01 Room Air 09/29/22 11:02 Room Air 09/29/22 10:16 09/29/22 07:51 Room Air 09/29/22 03:45 Room Air 09/28/22 22:34 09/28/22 22:40 Room Air 09/28/22 20:01 Room Air 09/28/22 18:25 Room Air 09/28/22 15:26 Room Air 09/28/22 13:11 Room Air 09/28/22 13:11 Room Air Recovery Score Activity: Moves 4 extremities Respiration: Deep Breath/Cough Circulation: +/-20% PreAnes Value Consciousness: Fully Awake Oxygen Saturation: > 92% On Room Air Discharge Sedation Level of Care: Phase I Post Sedation Plan On clinical assessment, the patient appears to have tolerated the sedation without complications. Patient is recovering as anticipated. Patient will continue to be monitored by nursing and may be discharged when sedation discharge criteria are met per below protocol. Upon Completions of procedure up to 15 minutes continue every 5 minute vital signs and the P.A.R. score; then discharge to a Phase I or Fast Track to Phase II per the following guidelines: * Discharge Patient to appropriate Phase II area if PAR is 8 or greater or return to pre- procedure baseline. The post - procedure orders will be as directed. * If PAR score is less than 8 or not return to pre-procedure baseline then patient will follow Phase I monitoring till PAR is reached for Phase II. The Phase I may be done in procedure room or may call to secure a Phase I area. * If naloxone or flumazenil are used for reversal, hold in Phase I for continued monitoring from when last reversal dose was given for a minimum of 60 minutes or longer pending the nurse and/or physician discretion of patient condition before discharge to Phase II. Please call the Sedation Physician to re-evaluate and complete post-note for discharge to Phase II area. Do NOT discharge from procedure sedation or Phase 1 until post- sedation evaluation note is complete by procedure /sedation MD Sedation Discharge Instructions to be given to the patient at discharge to home. [facility] [place]odes ([place]arges) Indication for Procedure Indication for procedure: chest pain abnormal stress Sedation/Anesthesia Procedure 1: Sedation/Anesthesia: 97179 Mod Sedation by the same physician;Init15 Min Child Age 5 & Up (initial 15 min) Total Sedation Time (minutes): 30 Procedure 2: Sedation/Anesthesia: 82030 Mod Sedation by the same physician; Ea [id number] Minutes (additional 15 min) Total Sedation Time (minutes): 30
--- NOTE | 2022-09-29 15:44 | Cardiac Catheterization ---
[facility] Data: [employer] Cardiac Status Clinical evaluation leading to the procedure CAD Presenation: Positive Stress Test Anginal Classification: CCS III Heart Failure: No Cardiogenic Shock within 24 Hours: No Cardiac Arrest within 24 Hours: No Imaging Studies Past 6 Months: Yes Stress Studies Past 6 Months: Yes Stress Testing w/SPECT MPI: Yes - Positive Coronary Anatomy Left Main (% Stenosis): Normal (Mild) LAD (% Stenosis): Mid (100%) D1 (% Stenosis): Normal (Small caliber) Circumflex (% Stenosis): Ostial (100%) RCA (% Stenosis): Proximal (70 to 80%), Mid (Mild) and Distal (Severe up to 80%) R PDA (% Stenosis): Normal R PL1 (% Stenosis): Normal (Mild scattered) Grafts - LAD (%): Normal Grafts - Circumflex (%): Normal Grafts - RCA (%): Normal Left Ventricular Angiography EF (%): 25 to 30% Mitral Regurgitation: 1+ Diagnostic Physicians Name: Easton Lambert MD, PhD Closure Device Percutaneous Entry Location: Femoral Closure Device: Angio-Seal Recommendations: Medical Therapy and/or Counseling Cardiac Cath Procedure Full Procedure Date September 29, 2022 Pre-Procedure Diagnosis Pre-Procedure Diagnosis: Positive Stress Test AUC Score AUC Score: 07 Post-Procedure Diagnosis Post-Procedure Diagnosis: Severe CAD Procedure(s) Performed Procedure(s) Performed: Coronary Angiography, Left Heart Cath, LV Angiography and Ultrasound Guided Vascular Access Line And Frame Poler Easton Lambert MD, PhD Estimated Blood Loss Estimated Blood Loss: 5 ml Medication(s) Medication(s): Fentanyl, Lidocaine 1% and Versed Summary of Findings Brief description: Patient was brought to the cardiac catheterization suite where he was shaved and prepped in a sterile fashion. Sedated using IV Versed and fentanyl. Soft tissues of the right groin were anesthetized using 10 mL of 1% Xylocaine. Using the ultrasound for guidance (image saved), right femoral artery was accessed and a 5 Belgian femoral artery sheath was placed. All catheters were advanced and exchanged over a 0.035 J-tip wire. Left coronary angiography in orthogonal views with a 5 Belgian JL 4 diagnostic catheter. Right coronary angiography in orthogonal views with a 5 Belgian JR4 diagnostic catheter. Left heart cath and left ventriculogram were performed with a 5 Belgian pigtail catheter. WALTERS graft angiography performed with a 5 Belgian CHIKA catheter. Saphenous vein graft angiography was performed with a 5 Belgian JR4 and a 5 Belgian multipurpose diagnostic catheter Diagnostic catheters were removed. Limited right femoral artery angiography was performed to evaluate for closure. Findings were favorable, therefore, femoral artery sheath was exchanged for a 6 Belgian Angio-Seal closure device. This was deployed in the recommended fashion. We obtained immediate hemostasis and the patient remained hemodynamically stable. He was returned to the recovery area. This ended the case. Coronary artery and bypass graft angiography findings: LMT: Medium caliber vessel bifurcating into LAD and circumflex. Distally there is mild to moderate calcification and no more than mild disease. LAD: Moderate proximal calcification with mild diffuse disease. Appears to give a large perforating septal trunk and a small caliber diagonal. The LAD then appears to be 100% occluded at the mid vessel. LCx: This appears to be 100% occluded at the ostium. Significant calcification is noted in the AV groove. RCA: Large caliber and dominant vessel. There is a long 70 to 80% proximal stenosis with mild to moderate calcification. The mid RCA has mild diffuse disease. Distally there is a long 80% stenosis before the bifurcation. Then, there is a large and long PDA and a large multi branching posterolateral branch. Competitive flow from the bypass graft is noted. SVG to OM1: Large caliber and widely patent. The [place] vessel is large and br anching distally. No significant disease. Fills retrograde and then appears to be occluded proximally. SVG to posterior lateral branch: This is large in caliber and widely patent. Distal anastomosis on the largest posterior lateral branch. The [place] vessel is widely patent with minimal plaque. There is retrograde filling to the distal RCA and into the large caliber PDA. WALTERS to LAD: This is a large caliber widely patent graft. Distal anastomosis on the early distal LAD. The [place] vessel beyond the anastomosis is widely patent, appears to wrap the apex, and is around 2 mm in diameter at the anastomosis. There is also retrograde filling of the [place] LAD where the mid segment is seen to have moderate 50 to 70% diffuse disease. There is filling into a long diagonal branch which has proximal severe disease. Left ventriculogram: LVEF 25 to 30% 1+ mitral regurgitation Summary: 1. 3 out of 3 bypass grafts remain widely patent 2. Severe ty[place]k vessel coronary artery disease 3. Severely reduced ejection fraction 4. LV pressure suggests dehydration/hypotension 5. Continue guideline directed medical therapy for secondary prevention of coronary disease. Agree with aspirin 81 mg daily, atorvastatin 80 mg daily, but will likely have to reduce beta-benjy, keep low-dose losartan, and consider discontinuation of Lasix and/or reduction of spironolactone dose. Given his hypotension and dizziness would also consider using SGLT2 inhibitor in place of spironolactone. Hemodynamics Rest Ao:: 102/64 mmHg, mean 80 mmHg Final Ao: 105/68 mmHg, mean 82 mmHg LV: 101 over 2 mmHg, LVEDP 6 mmHg Recommendations Recommendations: Medical Therapy and/or Counseling Radiation Exposure (mGy) 470 mGy, fluoroscopy time 5.3 minutes Contrast (mls) 105 mL Anesthesia 2 mg IV Versed, 50 mcg IV fentanyl Procedural Complication(s) None Disposition Recovery Room\PACU I attest to the content of the Intraoperative Record and any orders documented therein. Any exceptions are noted below. [facility] Card Cath Procedure Codes Cardiac Catheterization Procedure 1: Cardiovascular Cath Procedures: 33740 Coronaries & LHC (+/-LV) & Grafts/IM (arterial & venous) Therapeutic Services & Ancillary Procedure 1: Cardiovascular Tx and Anc Procedures: 44407 Ultrasonic Guidance Vascular Access Moderate Sedation Procedure 1: Sedation/Anesthesia: 39090 Mod Sedation by the same physician;Init15 Min Child Age 5 & Up (Initial 15 minutes (total 30 min)) Procedure 2: Sedation/Anesthesia: 43790 Mod Sedation by the same physician; Ea [id number] Minutes (Additional 15 minutes (total 30 minutes)) PG Care Time/CCT Total # of Minutes Spent Total Time Spent with Patient: Total time spent is greater than 50% in coordination of care (as documented) at patient's floor/unit and/or counseling patient:
--- NOTE | 2022-09-29 16:54 | Hospitalist Progress Note ---
Date of Service September 29, 2022 Assessment & Plan (1) Acute coronary syndrome: Plan: Patient is a 57-year-old male with the past medical history of ischemic cardiomyopathy, COPD, coronary artery disease, and status post CABG in 2020 who is currently admitted for expedited cardiac catheterization due to referral from [place]. He is currently hemodynamically stable and post catheterization. Acute coronary syndrome -CAD S/P CABG in 2020, noted to have ischemic cardiomyopathy and has been experiencing significant orthostatic hypotension and CLAYTON/Angina -Patient underwent a stress echo last month and was noted to have ischemic findings, he was scheduled to have a Heart Cath with Dr. Ivory on 10/04/22 -Patient was sent to the ED today from the [facility] clinic for recurrent orthostatic hypotension -Cardiology is consulted and underwent LHC: -3 out of 3 bypass grafts remain widely patent, -Continue ASA 81 mg daily, atorvastatin 80 mg daily. Discontinue carvedilol, Lasix, and spironolactone due to hypotension. Continue Jardiance -Monitor patient for the next 24 hours with medication changes, (2) Orthostatic hypotension: Plan: Unclear of the baseline BP management. On high doses of multiple medications. - Will Discontinue carvedilol, Lasix, and spironolactone due to hypotension. - Follow BP and slowly resume each med at a time and titrate as tolerated. (3) Essential (primary) hypertension: Plan: -Discontinued losartan, spironolactone, Lasix, and carvedilol -If hypertension were to become an issue, consider adding metoprolol which would in theory have less of an orthostatic effect than carvedilol (4) CAD (coronary artery disease): Plan: - Continue ASA and statin (5) Hyperlipidemia: Plan: -Continue statin (6) GERD (gastroesophageal reflux disease): Plan: -Continue Pepcid Plan Diet: Heart healthy Disposition: MedSurg with telemetry DVT prophylaxis: SCDs and Lovenox CODE STATUS: Conditional code with no CPR but would do a trial of intubation. Okay with defibrillation as well. Admission and Anticipated Discharge Date Admission Date: September 28, 2022 Supervising Physician Co-Signing Physician Notes Resident Physician Supervision Note: I independently interviewed and examined the patient and verified the harris history and physical, reviewed labs and image studies and agree with resident findings and care plan. Subjective Patient seen at bedside this morning. No acute events reported overnight. Patient overall comfortable at this time without feeling lightheaded or dizzy. Not having any shortness of breath or chest pain. Currently n.p.o. and is hungry but understands he needs to be n.p.o. for his catheterization later today. Otherwise no new complaints at this time Review of Systems Review of Systems: All systems reviewed & are unremarkable except as noted in HPI & below Physical Exam Constitutional: WD/WN, vitals as above Eyes: + anicteric sclerae and PERRL Neck: normal visual inspection Respiratory: normal respiratory effort, lungs clear to auscultation Cardiovascular: RRR, no murmur, no edema Gastrointestinal (Abdomen): normal bowel sounds, soft, nontender, no hepatosplenomegaly Musculoskeletal: Head/Neck/Chest: normocephalic and head atraumatic Skin: no rashes, warm and dry Neurologic: moves all extremities Psychiatric: A+Ox3, euthymic affect Results & Data Results & Data ([facility]) Vital Signs (Past 12 Hours) Vital Signs Temp Pulse Pulse Resp BP Pulse Ox O2 Del Method 09/29/22 16:17 60 14 100/66 95 Room Air 09/29/22 15:17 62 14 107/72 94 Room Air 09/29/22 15:00 63 09/29/22 14:17 69 14 95/68 L 94 Room Air 09/29/22 13:47 36.3 C L 58 L 14 121/79 93 Room Air 09/29/22 13:32 36.3 C L 59 L 16 119/76 96 Room Air 09/29/22 13:00 57 L 14 124/72 96 Room Air 09/29/22 13:14 57 L 14 118/63 96 Room Air 09/29/22 12:59 57 L 14 124/72 96 Room Air 09/29/22 12:01 58 L 16 99/58 L 96 Room Air 09/29/22 11:02 36.9 C 57 L 18 104/65 95 Room Air 09/29/22 10:16 48 L 09/29/22 07:51 37.2 C 75 16 101/67 94 Room Air
[2022-09-29] MEDS: ENOXAPARIN INJ 40 MG/0.4 ML SYR SQ SCH (18:17)
[2022-09-29] MEDS: traZODone HCL 50 MG TAB PO SCH (22:05)
[2022-09-30 08:25] LABS: Albumin Globulin Ratio 1.3 (0.9-2); Albumin Level 3.8 gm/dl (3.4-5.0); BUN Creatinine Ratio 16.7 (10-20); Bilirubin,Total 0.3 mg/dl (0.2-1.0); Calcium 8.7 mg/dl (8.5-10.1); Est GFR (Non-African American) 93.2 ml/min; Globulin 2.9 gm/dl (2.5-4.0); Magnesium 2.2 mg/dl (1.7-2.4); Potassium 4.2 mmol/L (3.5-5.1); Total Protein 6.7 gm/dl (6.0-8.3)
[2022-09-30] MEDS: FAMOTIDINE 20 MG TAB PO SCH (08:49)
[2022-09-30] MEDS: ASPIRIN 81 MG ECTAB PO SCH (08:49)
[2022-09-30] MEDS: ATORVASTATIN 40 MG TAB PO SCH (08:49)
[2022-09-30] MEDS: EMPAGLIFLOZIN 25 MG TAB PO SCH (08:50)
[2022-09-30] MEDS: DULoxetine HCL 30 MG CAP PO SCH (08:50)
[2022-09-30] MEDS: FLUoxetine HCL 20 MG CAP PO SCH (08:50)
[2022-09-30] MEDS: ACETAMINOPHEN 500 MG TAB PO SCH (08:52)
--- NOTE | 2022-09-30 14:38 | Cardiology Progress Note ---
Date of Service September 30, 2022 Assessment & Plan (1) Orthostatic hypotension: (2) Ischemic cardiomyopathy: (3) CLAYTON (dyspnea on exertion): (4) CAD (coronary artery disease): (5) S/P CABG (coronary artery bypass graft): Plan As noted, CABG grafts patent. No further revascularization planned, continue medical management. Given his ongoing orthostasis off medications, would discharge without vasoactive regimen and gradually add back low-dose ARB first, possibly spironolactone, and carvedilol only if he had some degree of hypertension. Although these medications are guideline-based, they serve little purpose if his degree of hypotension causes hypoperfusion of his ischemic cardiomyopathy. All vasoactive medication should be titrated to optimize hemodynamics. Furosemide use should be weight-based on a PRN basis, he should not be discharged on diuretic but should have furosemide available for any abrupt fluid retention (weight gain of greater than 2 pounds in a day or 5 pounds in a week). Apparently, he had been turned down for defibrillator in the past because his EF was variable, given current Findings of EF 25-30% he is a candidate for ICD placement. He may be utilizing a LifeVest in the interim. Cardiology follow-up will be at the [facility] and by [place] [facility]. Admission and Anticipated Discharge Date Admission Date: September 28, 2022 Subjective Uneventful night, feels well in general, no chest pain or dyspnea. Still notes lightheadedness when he stands up. BP by MD 106/60 mmHg seated, systolic blood pressure transiently dropped to 60 mmHg upon standing and rises slowly to 90 mmHg. He did note lightheadedness during my BP check. Physical Exam Physical Exam: No distress. BP than noted in HPI. Pulse 68 bpm and regular. Skin: no ecchymoses or generalized lesions. HEENT: unremarkable. Neck: no JVD or carotid bruits. Lungs: Mildly decreased breath sounds but clear bilaterally. No wheezing or rhonchi. Cardiac: regular rhythm, normal S1 and S2 no murmur or gallop. Abdomen: benign. Extremities: no edema, pulses intact. Neurologic: normal affect and conversation, nonfocal. Results & Data ([facility]) Vital Signs (Past 12 Hours) Vital Signs Temp Pulse Pulse Resp BP Pulse Ox O2 Del Method 09/30/22 12:19 98.1 F 67 18 107/70 94 Room Air 09/30/22 08:00 76 09/30/22 11:09 94 09/30/22 02:54 97.5 F L 60 16 108/71 95 Room Air Laboratory Results Normal electrolytes, BUN 15, creatinine 0.9. PG Care Time/CCT Total # of Minutes Spent Total Time Spent with Patient: Total time spent is greater than 50% in coordination of care (as documented) at patient's floor/unit and/or counseling patient: Coding Level of Care Code 08718 SUB INP/OBS CARE 3/50MIN Diagnoses Orthostatic hypotension I95.1 Ischemic cardiomyopathy I25.5 CLAYTON (dyspnea on exertion) R06.09 CAD (coronary artery disease) I25.10 S/P CABG (coronary artery bypass graft) Z95.1
--- NOTE | 2022-09-30 15:59 | Discharge Summary ---
Date of Service September 30, 2022 Admission HPI Per Admitting Provider Harpreet is a 57 year old male with a PMH significant for CAD status post CABG in 2020 in [place], HFrEF (LVEF of 30-35%, grade I diastolic dysfunction, generalized hypokinesis of the left ventricle as of 07/28/23), anxiety/depression, and hyperlipidemia who presented to the [facility]. In the ED the patient was found to be afebrile, hemodynamically stable, and stable on RA. Labs were remarkable for a CBC WNL, cr of 0.93 (no previous baseline), stable electrolytes, initial high sensitivity trop of 7.9, TSH WNL, chest xray was read as "No acute process.". At the time of the exam the patient was resting comfortably in bed in no acute distress with his sitting bedside. He states that since his CABG procedure in 2020 he has had issues with orthostatic hypotension and has been symptomatic (CLAYTON, angina) with minimal exertion. When asked, he states that his symptoms have been progressing in the recent past including CLAYTON and chest pain. [facility] today where they performed orthostatic vitals, he was significantly orthostatic with systolic BP in the 70's, he was noted to be significantly dizzy/lightheaded. He recently moved to [place] from [place] and underwent a stress echo on 08/31/[address] Cortez which showed "a moderate sized area of mild to moderate anteroapical ischemia". He was scheduled for a heart cath with Dr. Ivory on 10/04/22 but was sent here for further evaluation. He denies recent fevers, chills, changes in vision, hearing, taste, and smell, current chest pain, SOB at rest, abdominal pain, nausea, vomiting, diarrhea, dysuria, hematuria and recent falls. We discussed code status, the patient was adamant that he would NOT want CPR or defibrillation in the event of cardiac arrest. In the even of respiratory failure the patient would want a trial of intubation. If he could not make decisions himself he would want his to make decisions for him. Please refer to Dr. Mock's attestation for any chnages to the treatment. Principal Diagnosis 30 Discharge Exam Constitutional WD/WN, vitals as above Eyes + anicteric sclerae and PERRL Neck normal visual inspection Respiratory normal respiratory effort, lungs clear to auscultation Cardiovascular RRR, no murmur, no edema Gastrointestinal (Abdomen) normal bowel sounds, soft, nontender, no hepatosplenomegaly Musculoskeletal Head/Neck/Chest: normocephalic and head atraumatic Skin no rashes, warm and dry Neurologic moves all extremities Psychiatric A+Ox3, euthymic affect Discharge Data Allergies Allergy/AdvReac Type Severity Reaction Status Date / Time lisinopril Allergy Verified 09/16/22 10:00 Penicillins Allergy Verified 09/16/22 10:00 Consultations 09/28/22 14:33 ED Decision to Admit Stat 09/28/22 15:36 Consult Cardiology Routine Procedures Performed Operation Date: 09/29/22 12:00 Actual Procedures s Cineradiography w/Routine Exam - Easton Lambert MD, PhD p Cath, Left w/Cors Vent Grafts - Easton Lambert MD, PhD s Placement Art Occlusive Device - Easton Lambert MD, PhD s Ultrasound Vascular Access - Easton Lambert MD, PhD Ordered Studies 09/29/22 12:09 CL Cath Imgs for PACS use only Routine Hospital Course (1) Orthostatic hypotension: Patient is a 57-year-old male with the past medical history of ischemic cardiomyopathy, COPD, coronary artery disease, and status post CABG in 2020 who is currently admitted for expedited cardiac catheterization due to referral from [facility]. He is currently hemodynamically stable and post catheterization. Patient was admitted to the hospital for orthostatic hypotension and expedited heart catheterization due to patient's history of ischemic cardiomyopathy and CABG in 2020. He had attended an appointment at the [facility] and has appointment his orthostasis because his systolic blood pressure dropped into the 70s where he was recommended to go to the emergency room for evaluation and again expedited cardiac catheterization as above. Cardiac catheterization was performed on 09/29/2022 and did not show any new ischemic changes in the CABG or other vessels. For this reason, cardiology recommended discontinuing the majority of his cardiac medications including carvedilol, losartan, and spironolactone. Recommended he only utilize Lasix for weight gain as needed rather than a scheduled dose. Recommended to continue Jardiance. As his symptoms improved from discontinuation of all these medications, may slowly 1 agent back at a time as tolerated starting with losartan which has the highest reduction in mortality. We also recommend that the patient would benefit from cardiac rehab. And lastly, the cardiac catheterization that was performed at our facility showed an ejection fraction of 25 to 30% indicating need for ICD placement. He will be set up with a LifeVest in the interim until he follows up with his jewelry estimator. (2) CAD (coronary artery disease): - Continue ASA and statin (3) Essential (primary) hypertension: -Discontinued losartan, spironolactone, Lasix, and carvedilol -If hypertension were to become an issue, consider adding metoprolol which would in theory have less of an orthostatic effect than carvedilol (4) Hyperlipidemia: -Continue statin (5) GERD (gastroesophageal reflux disease): -Continue Pepcid Plan Diet: Heart healthy Disposition: Discharge home with cardiology follow-up CODE STATUS: Conditional code with no CPR but would do a trial of intubation. Okay with defibrillation as well. Total Time Total Time Spent Total Time Spent (In Minutes): 30 Discharge Plan Discharge Items Patient Disposition: Home - Self-Care Reason For Visit: NEAR SYNCOPE Discharge Diagnosis: Orthostatic presyncope Activity: Per Instructions section Non-emergency contact: Primary Care Provider and Business Banking Manager Call non-emergency contact if: you have any medication questions Follow-up/Referrals: Dillon Cortez MD [Physician] - 10/04/22 3:00 pm (Appointment scheduled with Dr Lambert 10/04/22 @ 15:00) Satya Hutchinson PA-C [Primary Care Provider] - (Please call PCP for follow up appointment per office request.) Diet: Heart Healthy Addtl Attending Provider Instructions: You were seen in the hospital for evaluation in regards to orthostatic hypotension. You originally expected to have a cardiac catheterization done on 10/04, however, due to the worsening of your [facility]ostasis [facility], it was recommended that you come to the emergency room for an expedited cardiac catheterization. While you are here this catheterization was completed and did not show any new occlusion in your CABG from 2020 was widely patent. Cardiology was consulted and recommended discontinuing the majority of your diuretic type drugs to help reduce the amount of orthostasis you are experiencing including: Carvedilol, losartan, and spironolactone. For your Lasix, was recommended by cardiology that you only use it as needed for weight gain due to water retention. It was recommended that you continue your Jardiance. In the outpat ient setting, we recommend slowly adding on medications as tolerated to achieve maximum effect with the least amount of side effects. We recommend beginning this with losartan but we will do this in the outpatient setting. Otherwise we had physical therapy see you who had noted your difficulty with ambulation due to orthostasis. They recommended giving yourself more time to set up and stand up from a resting position. Lastly, I recommend getting a referral for cardiac rehab which is a titrated exercise program to help your body get used to your heart's ejection fraction and heart failure. Please bring this up with your Business Banking Manager. Otherwise please follow-up with your primary care provider within 1 to 2 weeks of discharge as well as your jewelry estimator. Is been a pleasure to be part of your care and we wish you the best in both your health and your recovery. Pending Studies at Discharge: No Stand-Alone Forms: My [facility], Smoking Cessation Medications and DC Order Prescriptions: Continued multivitamin Tablet 1 tab PO DAILY aspirin 81 mg tablet,delayed release (DR/EC) 81 mg PO DAILY B complex with C 20-folic acid 1 mg capsule 1 cap PO DAILY atorvastatin 80 mg tablet 80 mg PO DAILY duloxetine 30 mg capsule,delayed release(DR/EC) 30 mg PO DAILY empagliflozin 25 mg tablet 25 mg PO DAILY famotidine 20 mg tablet 20 mg PO DAILY fluoxetine 20 mg capsule 40 mg PO DAILY furosemide 20 mg tablet 20 mg PO DAILY PRN (Reason: weight gain) trazodone 100 mg tablet 150 mg PO HS Rx Instructions: may take 1.5-3 pills for sleep Discontinued baclofen 10 mg tablet 10 mg PO TID PRN (Reason: spasms) meclizine [Dramamine (meclizine)] 25 mg tablet,chewable 12.5 mg PO Q8H PRN (Reason: dizziness) triamcinolone acetonide 55 mcg aerosol,spray 2 spray intranasal DAILY Rx Instructions: administer into each nostril carvedilol 25 mg Tablet 25 mg PO BID losartan 25 mg Tablet 12.5 mg PO DAILY spironolactone 25 mg PO DAILY Discharge Orders: Discharge Order (Routine); Ordered 09/30/22 Ordered By: Prasanna García/Other Patient Handouts: Cardiac Rehabilitation, Orthostatic Hypotension, ED Low Blood Pressure, All Causes Admission Data Admit Date/Time: 09/28/22 15:34 Attending Provider: Sendy Lopez Admit Provider: Isra Mock Primary Care Provider: Satya Hutchinson Other Providers: Isra Mock ; Dillon Cortez ; [facility] Other Interventions: Discharge Summary Assessment (RN) Last Done: 09/30/22 16:43 Supervising Physician Co-Signing Physician Notes Resident Physician Supervision Note: I independently interviewed and examined the patient and verified the harris history and physical, reviewed labs and image studies and agree with resident findings and care plan.
[2022-09-30] MEDS: ENOXAPARIN INJ 40 MG/0.4 ML SYR SQ SCH (17:43)
== END 2022-09-30 18:24 | disposition home or self-care (01) | DRG 287 ==
LOC: ED 12:39 → SUATTDRO 15:34 → EDINP 15:34 → 2S 19:51

== ENCOUNTER 2022-12-02 11:33 | Inpatient (IN) ==
[2022-12-02] MEDS ORDERED: VANCOMYCIN HCL 1000MG/20ML VIAL ONE (12:38)
[2022-12-02] MEDS ORDERED: WATER, STERILE FOR INJ 10 ML VIAL ONE (12:38)
[2022-12-02] MEDS ORDERED: BUPIVACAINE 0.25% PF 30 ML VIAL ONE (12:39)
--- NOTE | 2022-12-02 12:39 | History & Physical Bridge Note ---
Date of Service December 02, 2022 History & Physical Bridge Note I have examined the patient, reviewed the History & Physical and in the interval since the performance of the History & Physical I have noted the following changes of clinical significance: no changes noted
--- NOTE | 2022-12-02 12:41 | Pre Anesthesia Assessment ---
Date of Service December 02, 2022 Pre Sedation Assessment Vital Signs Pulse Resp BP Pulse Ox O2 Del Method 12/02/22 12:00 66 14 129/72 98 Room Air Cardiovascular + regular rate Respiratory + respiratory effort normal Pre-Sedation Airway Assessment Smoking Status: Former smoker Hx Sleep Apnea: Yes Hx Difficult Intubation: No Short, Thick Neck: No Thyromental Distance: > or= 3.5 Finger Breadths Oral Cavity: + Dentures Mallampati Class: III ASA: ASA3 NPO Status Date of Last Intake of Fluids: 12/01/22 Time of Last Intake of Fluids: 20:00 Date of Last Intake of Solid Food: 12/01/22 Time of Last Intake of Solid Foods: 20:00 Procedure Planning Contraindications for Sedation: none Current Medications Reviewed: Yes Notes The planned sedation has been discussed with the patient. Informed Consent was obtained. I have identified the patient, determined the appropriateness of sedation and have assessed the patient immediately prior to the procedure. All medicine(s) and interventions are by my order.
[2022-12-02] MEDS ORDERED: MIDAZOLAM HCL 5 MG/ML 1 ML VIAL ONE (12:52)
[2022-12-02] MEDS ORDERED: fentaNYL citrate PF 100 MCG/2 ML VIAL ONE (12:52)
[2022-12-02] MEDS ORDERED: ceFAZolin 330 MG/ML 1 GM VIAL ONE (13:07)
--- NOTE | 2022-12-02 14:14 | Post Anesthesia Assessment ---
Date of Service December 02, 2022 Post Sedation Assessment Vital Signs Pulse Resp BP Pulse Ox O2 Del Method 12/02/22 12:00 66 14 129/72 98 Room Air Recovery Score Activity: Moves 4 extremities Respiration: Deep Breath/Cough Circulation: +/-20% PreAnes Value Consciousness: Arouseable (by name) Oxygen Saturation: > 92% On Room Air Discharge Sedation Level of Care: Fast Track Phase II Post Sedation Plan On clinical assessment, the patient appears to have tolerated the sedation without complications. Patient is recovering as anticipated. Patient will continue to be monitored by nursing and may be discharged when sedation discharge criteria are met per below protocol. Upon Completions of procedure up to 15 minutes continue every 5 minute vital signs and the P.A.R. score; then discharge to a Phase I or Fast Track to Phase II per the following guidelines: * Discharge Patient to appropriate Phase II area if PAR is 8 or greater or return to pre- procedure baseline. The post - procedure orders will be as dir ected. * If PAR score is less than 8 or not return to pre-procedure baseline then patient will follow Phase I monitoring till PAR is reached for Phase II. The Phase I may be done in procedure room or may call to secure a Phase I area. * If naloxone or flumazenil are used for reversal, hold in Phase I for continued monitoring from when last reversal dose was given for a minimum of 60 minutes or longer pending the nurse and/or physician discretion of patient condition before discharge to Phase II. Please call the Sedation Physician to re-evaluate and complete post-note for discharge to Phase II area. Do NOT discharge from procedure sedation or Phase 1 until post- sedation evaluation note is complete by procedure /sedation MD Sedation Discharge Instructions to be given to the patient at discharge to home.
[2022-12-02] MEDS ORDERED: ACETAMINOPHEN 325 MG TAB PO PRN (14:15)
[2022-12-02] MEDS ORDERED: oxyCODONE HCL IR 5 MG TAB (IMMEDIATE RELEASE) PO PRN (14:15)
--- NOTE | 2022-12-02 14:15 | Electrophysiology Report ---
Date of Service December 02, 2022 Electrophysiology Procedure Electrophysiology Procedure Report Procedure performed: Implantation of dual-chamber ICD Staff tour conductor: Juan Antonio Blanca MD Indication: the patient is a 57-year-old gentleman with a history of ischemic cardiomyopathy. He has a persistently low ejection fraction of 30 percent despite guideline directed medical therapy. He has not suffered a myocardial infarction in the past 40 days or had revascularization in the past 90 days. [place] heart Association class 2 symptoms. Estimated longevity greater than 1 year. QRS duration less than 129 milliseconds. Not a candidate for HOGSHEAD LINER. He presents today for insertion of a ICD as primary prevention against sudden cardiac . Procedure in detail: The patient was informed of the risks benefits and alternatives to the intended procedure and he wished to proceed. He was taken to the electrophysiology suite in a fasting state. A preoperative antibiotic had been administered. The patient was monitored electrocardiographically throughout today's procedure and conscious sedation was administered per protocol. The left upper pectoral area is prepped and draped in usual sterile fashion. This area was anesthetized using subcutaneous administration of a xylocaine solution. An incision was made at this site and carried down to the prepectoralis fascia using sharp dissection. Electrocautery was also employed for dissection as well as for hemostasis. A d evice pocket was fashioned tissues above the pectoralis muscle. Subsequent to this maneuver the left axillary vein was accessed using modified Seldinger technique. Sheaths were placed over guidewires at this site and used to facilitate passage of the pacing leads to the respective chambers under fluoroscopic guidance. This included right atrial and right ventricular leads. Adequate sensing and threshold parameters were obtained prior to Active fixation of the leads to the endocardial surface. The proximal portion leads were then sutured the prepectoral fascia using nonabsorbable suture. The device pocket was irrigated with antibiotic solution. The leads were then attached to the device. The device and leads were then placed in the pocket and pocket was closed in 3 layers of absorbable suture. Steri-Strips and sterile dressing were applied. The device was tested noninvasively prior to conclusion the procedure. The patient tolerated procedure well there no immediate complications. Equipment used: New pulse generator: [employer]. Model number: [id number] Serial number [id number] Right atrial lead: [employer]. Model number: [id number] serial number [id number] Right ventricular lead: [employer]. Model number: 6935 mm serial number [id number] Measured data: Right atrial lead: P-waves measured 2.2 millivolts. Pacing threshold was 0.8 volts at 0.5 milliseconds with a pacing impedance of 724 Ohms Right ventricular lead: R-waves measure 6.4 millivolts. Pacing threshold was 0.6 volts at 0.5 milliseconds with a pacing impedance of 545 Ohms Impression: Successful implantation of dual-chamber ICD MNPG Electrophysiology codes ICD Procedure 1: ICD: 54426 Insert single or dual ICD system PG Moderate Sedation Codes Moderate Sedation Codes Procedure 1: Sedation/Anesthesia: 16108 Mod Sedation by the same physician;Init15 Min Child Age 5 & Up Procedure 2: Sedation/Anesthesia: 11003 Mod Sedation by the same physician; Ea [id number] Minutes
[2022-12-02] MEDS ORDERED: traZODone HCL 50 MG TAB PO SCH (21:00)
[2022-12-02] MEDS ORDERED: ceFAZolin 1000MG 1,000 MG/7.5 ML SYR IV ONE (21:00)
--- NOTE | 2022-12-03 08:39 | XRay Report ---
TWO VIEW CHEST CLINICAL HISTORY: Pacemaker implantation. FINDINGS: PA and lateral chest radiographs are compared to study dated 09/28/2022. The patient is statu s post midline sternotomy. Epicardial pacing leads are noted. A 2-lead cardiac AICD has been implante d and partially obscures the left apex. Leads project over the right atrial appendage and the right v entricle. The heart is enlarged noting atherosclerotic calcification of the thoracic aorta. The pulmo nary vasculature is noncongested. Chronic interstitial thickening is similar to previous. The lungs and pleural spaces are clear. There is no pneumothorax. The skeletal structures are osteopenic. The b brandy thorax appears intact. IMPRESSION: 1. A 2-lead cardiac AICD has been implanted as above. No pneumothorax is seen post procedure. 2. Cardiomegaly without radiographic evidence of congestive failure. 3. No airspace consolidation or pleural effusion is identified. ACT 112: Negative or not required by law. Electronically signed by: Pascual Min M.D. 12/03/2022 8:38 AM
--- NOTE | 2022-12-03 08:47 | Discharge Summary ---
Date of Service December 03, 2022 Discharge Data Allergies Allergy/AdvReac Type Severity Reaction Status Date / Time lisinopril Allergy Verified 11/26/22 08:48 Penicillins Allergy Verified 11/26/22 08:48 Procedures Performed Operation Date: 12/02/22 13:00 Actual Procedures p ICD Insertion Single or Dual - Juan Antonio Blanca MD Ordered Studies 12/02/22 06:54 CL Cath Imgs for PACS use only Routine Discharge Plan Discharge Items Reason For Visit: ICD IMPLANT Follow-up/Referrals: Satya Hutchinson, PARajiC [Primary Care Provider] - Medications and DC Order Prescriptions: No Action Metoprolol 25 mg PO DAILY multivitamin Tablet 1 tab PO DAILY aspirin 81 mg tablet,delayed release (DR/EC) 81 mg PO DAILY B complex with C 20-folic acid 1 mg capsule 1 cap PO DAILY atorvastatin 80 mg tablet 80 mg PO DAILY duloxetine 30 mg capsule,delayed release(DR/EC) 30 mg PO DAILY empagliflozin 25 mg tablet 25 mg PO DAILY famotidine 20 mg tablet 20 mg PO DAILY fluoxetine 20 mg capsule 40 mg PO DAILY trazodone 100 mg tablet 150 mg PO HS Rx Instructions: may take 1.5-3 pills for sleep Admission Data Admit Date/Time: 12/02/22 14:15 Attending Provider: Juan Antonio Blanca Admit Provider: Juan Antonio Blanca Primary Care Provider: Satya Hutchinson Other Providers: [facility] Coding Diagnoses
[2022-12-03] MEDS ORDERED: METOPROLOL SUCC 25MG EXT REL TAB PO SCH (09:00)
[2022-12-03] MEDS ORDERED: ATORVASTATIN 40 MG TAB PO SCH (09:00)
[2022-12-03] MEDS ORDERED: DULoxetine HCL 30 MG CAP PO SCH (09:00)
[2022-12-03] MEDS ORDERED: FAMOTIDINE 20 MG TAB PO SCH (09:00)
[2022-12-03] MEDS ORDERED: EMPAGLIFLOZIN 25 MG TAB PO SCH (09:00)
[2022-12-03] MEDS ORDERED: ASPIRIN 81 MG ECTAB PO SCH (09:00)
[2022-12-03] MEDS ORDERED: FLUoxetine HCL 20 MG CAP PO SCH (09:00)
[2022-12-03] MEDS ORDERED: MULTIVITAMIN TAB PO SCH (09:00)
== END 2022-12-03 09:45 | disposition home or self-care (01) | DRG 227 ==
LOC: EP 11:33 → 2E 14:15
PROC: EPB.ICD (2022-12-02 13:00)